=== PATIENT | male | born 1985 | race Caucasian/White ===

== ENCOUNTER 2016-11-24 22:44 | Emergency (ER) | payer OTHER ==
[~2016-11-24] VITALS: Ht 162.6 cm; Wt 81.6 kg
[2016-11-24 23:00] VITALS: BP 142/88
[2016-11-24] MEDS ORDERED: IV NORMAL SALINE 1,000ML 1,000 ML IV ONE (23:30)
[2016-11-24] MEDS ORDERED: fentaNYL PF 100 MCG/2 ML VIAL IV ONE (23:30)
[2016-11-24] MEDS ORDERED: ONDANSETRON PF 4 MG/2 ML VIAL. IV ONE (23:30)
[2016-11-24 23:46] LABS: BASO # 0.1 x10^3/uL (0.0-0.2); BASO % 1 % (0-3); EOS # 0.2 x10^3/uL (0.0-0.7); EOS % 2 % (0-3); HEMOGLOBIN 14.4 g/dL (13.0-17.5); LYMPH # 2.8 x10^3/uL (1.0-4.8); LYMPH % 24 % (24-48); MEAN CORPUSCULAR HEMOGLOBIN 33 pg (25-35); MEAN CORPUSCULAR HGB CONC 34 g/dL (31-37); MEAN CORPUSCULAR VOLUME 95 fL (79-100); MONO # 0.8 x10^3/uL (0.0-1.1); MONO % 7 % (0-9); NEUT # 7.6 x10^3uL (1.8-7.7); NEUT % 66 % (31-73); PLATELET COUNT 364 x10^3/uL (140-400); RED BLOOD COUNT 4.43 x10^6/uL (4.30-5.70); RED CELL DISTRIBUTION WIDTH 13.5 % (11.5-14.5); WHITE BLOOD COUNT 11.5 x10^3/uL (4.0-11.0)
[2016-11-24 23:51] LABS: BILIRUBIN,URINE NEG (NEG); CLARITY,URINE CLEAR; COLOR,URINE YELLOW; GLUCOSE,URINE NEG (NEG); NITRITE,URINE NEG (NEG); RBC,URINE >40 /HPF (0-2); UROBILINOGEN,URINE 0.2 mg/dL (0.2 mg/dL)
[2016-11-24 23:52] LABS: BACTERIA,URINE 0 /HPF (0-FEW); SQUAMOUS EPITHELIAL CELL,UR FEW /LPF; WBC,URINE OCC /HPF (0-4)
[2016-11-24 23:58] LABS: ALBUMIN/GLOBULIN RATIO 1.2 (1.0-1.7); CALCIUM 8.6 mg/dL (8.5-10.1); CREATININE 0.8 mg/dL (0.7-1.3); GFR 111.3; POTASSIUM 3.5 mmol/L (3.5-5.1); TOTAL BILIRUBIN 0.3 mg/dL (0.2-1.0); TOTAL PROTEIN 7.4 g/dL (6.4-8.2)
[2016-11-25] MEDS ORDERED: KETOROLAC 30 MG/ML VIAL. IV ONE
--- NOTE | 2016-11-25 00:29 | RAD ---
INDICATION: [id number] Left flank pain x2 hours. No injury. Hx of hysterectomy. COMPARISON: None. TECHNIQUE: Axial CT images were obtained through the abdomen and pelvis without intravenous contrast. Limited assessment of solid organ structures and vasculature secondary to lack of intravenous contrast. One or more of the following individualized dose reduction techniques were utilized for this examination: 1. Automated exposure control; 2. Adjustment of the mA and/or kV according to patient size; 3. Use of iterative reconstruction technique. FINDINGS: Chest Base: Partially imaged without gross abnormality. Vessels: No abdominal aortic aneurysm. Liver/Biliary: No intrahepatic bile duct dilation Pancreas: No peripancreatic edema. Spleen: Normal. Kidneys/Adrenal: Left-sided hydronephrosis with 7 mm proximal ureter stone Bladder: No definite adjacent inflammation. GI: No free air. No bowel dilation to suggest obstruction. Appendix does not appear inflamed. Suspected cystic lesion right adnexa, 3 cm. Small fat-containing umbilical hernia. IMPRESSION: 1. Left-sided hydronephrosis with proximal ureter stone. 2. Small cystic lesion right adnexa. 3. There is a sclerotic focus in the left femoral head. Could be from causes such as bone island but would correlate with symptoms in the region to ensure that there is not alternative cause such as bone infarct. Electronically signed by: Willis Maldonado MD (11/25/2016 12:26 AM) [facility]
[2016-11-25] MEDS ORDERED: fentaNYL PF 100 MCG/2 ML VIAL IV ONE (00:45)
--- NOTE | 2016-11-25 06:45 | ED.ADGEN ---
Past History Past Medical History: No Pertinent History Past Surgical History: Hysterectomy Alcohol Use: None Drug Use: None Adult General Chief Complaint Chief Complaint Acute onset left flank pain HPI HPI Patient is a 31-year-old female presents with acute onset left flank pain radiating to left groin. No hematuria, tissue area, urinary frequency urgency. No history of kidney stones. Reports nausea without vomiting. No fever chills or sweats. Previous hysterectomy.. [] Review of Systems Review of Systems Constitutional: Denies fever or chills [] Eyes: Denies change in visual acuity, redness, or eye pain [] HENT: Denies nasal congestion or sore throat [] Respiratory: Denies cough or shortness of breath [] Cardiovascular: No additional information not addressed in HPI [] GI: Denies abdominal pain, nausea, vomiting, bloody stools or diarrhea [] : Denies dysuria or hematuria [] Integument: Denies rash or skin lesions [] Neurologic: Denies headache, focal weakness or sensory changes [] Endocrine: Denies polyuria or polydipsia [] Current Medications Current Medications Current Medications Medications (Trade) Dose Ordered Sig/Dania Start Time Stop Time Status Last Admin Dose Admin Fentanyl Citrate (Fentanyl 2ml Vial) 75 mcg 1X ONCE 11/25/16 00:45 11/25/16 02:01 DC 11/25/16 00:45 75 MCG Ketorolac Tromethamine (Toradol) 30 mg 1X ONCE 11/25/16 00:00 11/25/16 02:01 DC 11/25/16 00:00 30 MG Ondansetron HCl (Zofran) 4 mg 1X ONCE 11/24/16 23:30 11/25/16 02:01 DC 11/24/16 23:30 4 MG Sodium Chloride 1,000 ml @ 1,000 mls/hr 1X ONCE 11/24/16 23:30 11/25/16 02:01 DC 11/24/16 23:30 1,000 MLS/HR Allergies Allergies Allergies Coded Allergies Type Severity Reaction Last Updated Verified cephalexin Allergy Unknown 11/25/16 Yes morphine Allergy Unknown 11/25/16 Yes Physical Exam Physical Exam Constitutional: Well developed, well nourished, moderate discomfort secondary to pain. [] HENT: Normocephalic, atraumatic, bilateral external ears normal, oropharynx moist, no oral exudates, nose normal. [] Eyes: PERRLA, EOMI, conjunctiva normal, no discharge. [] Neck: Normal range of motion, no tenderness, supple, no stridor. [] Cardiovascular:Heart rate regular rhythm, no murmur [] Lungs & Thorax: Bilateral breath sounds clear to auscultation [] Abdomen: Bowel sounds normal, soft, no tenderness, no masses, no pulsatile masses. [] Skin: Warm, dry, no erythema, no rash. [] Back: No tenderness, no CVA tenderness. [] Extremities: No tenderness, no cyanosis, no clubbing, ROM intact, no edema. [] Neurologic: Alert and oriented X 3, normal motor function, normal sensory function, no focal deficits noted. [] Psychologic: Affect normal, judgement normal, mood normal. [] Current Patient Data Vital Signs Vital Signs Date Time Temp Pulse Resp B/P (MAP) Pulse Ox O2 Delivery O2 Flow Rate FiO2 11/24/16 23:00 98.3 83 20 98 Room Air Lab Results Laboratory Tests Test 11/24/16 23:20 White Blood Count 11.5 x10^3/uL (4.0-11.0) H Red Blood Count 4.43 x10^6/uL (4.30-5.70) Hemoglobin 14.4 g/dL (13.0-17.5) Hematocrit 42.0 % (39.0-53.0) Mean Corpuscular Volume 95 fL (79-100) Mean Corpuscular Hemoglobin 33 pg (25-35) Mean Corpuscular Hemoglobin Concent 34 g/dL (31-37) Red Cell Distribution Width 13.5 % (11.5-14.5) Platelet Count 364 x10^3/uL (140-400) Neutrophils (%) (Auto) 66 % (31-73) Lymphocytes (%) (Auto) 24 % (24-48) Monocytes (%) (Auto) 7 % (0-9) Eosinophils (%) (Auto) 2 % (0-3) Basophils (%) (Auto) 1 % (0-3) Neutrophils # (Auto) 7.6 x10^3uL (1.8-7.7) Lymphocytes # (Auto) 2.8 x10^3/uL (1.0-4.8) Monocytes # (Auto) 0.8 x10^3/uL (0.0-1.1) Eosinophils # (Auto) 0.2 x10^3/uL (0.0-0.7) Basophils # (Auto) 0.1 x10^3/uL (0.0-0.2) Urine Collection Type Unknown Urine Color Yellow Urine Clarity Clear Urine pH 6.0 Urine Specific [place] 1.020 Urine Protein Neg (NEG-TRACE) Urine Glucose (UA) Neg mg/dL (NEG) Urine Ketones (Stick) Neg mg/dL (NEG) Urine Blood Large (NEG) Urine Nitrite Neg (NEG) Urine Bilirubin Neg (NEG) Urine Urobilinogen Dipstick 0.2 mg/dL (0.2 mg/dL) Urine Leukocyte Esterase Neg (NEG) Urine RBC >40 /HPF (0-2) Urine WBC Occ /HPF (0-4) Urine Squamous Epithelial Cells Few /LPF Urine Bacteria 0 /HPF (0-FEW) Sodium Level 138 mmol/L (136-145) Potassium Level 3.5 mmol/L (3.5-5.1) Chloride Level 101 mmol/L (98-107) Carbon Dioxide Level 33 mmol/L (21-32) H Anion Gap 4 (6-14) L Blood Urea Nitrogen 6 mg/dL (8-26) L Creatinine 0.8 mg/dL (0.7-1.3) Estimated GFR (Cockcroft-Gault) 111.3 BUN/Creatinine Ratio 8 (6-20) Glucose Level 108 mg/dL (70-99) H Calcium Level 8.6 mg/dL (8.5-10.1) Total Bilirubin 0.3 mg/dL (0.2-1.0) Aspartate Amino Transferase (AST) 15 U/L (15-37) Alanine Aminotransferase (ALT) 23 U/L (16-63) Alkaline Phosphatase 64 U/L (46-116) Total Protein 7.4 g/dL (6.4-8.2) Albumin 4.0 g/dL (3.4-5.0) Albumin/Globulin Ratio 1.2 (1.0-1.7) Lipase 201 U/L (73-393) EKG EKG [] Radiology/Procedures Radiology/Procedures [CT abdomen pelvis: Proximal 7 mm left ureteral stone with moderate hydroureter/ nephrosis.] Course & Med Decision Making Course & Med Decision Making Pertinent Labs and Imaging studies reviewed. (See chart for details) [Repeat IV narcotics, NSAIDs IV fluids given with significant improvement of symptoms. Recommendations are for close PCP follow-up or your for urology referral. Return precautions reviewed. Patient verbalized understanding agreement discharge instructions prior to departure.] Final Impression Final Impression [1 left flank pain 2. Ureteral stone] Problems: Dragon Disclaimer Dragon Disclaimer This electronic medical record was generated, in whole or in part, using a voice recognition dictation system. YAS ALMENDAREZ DO Nov 25, 2016 06:45
== END 2016-11-25 01:30 | disposition home or self-care (01) ==
LOC: ER 22:44
DX: N13.2 Hydronephrosis with renal and ureteral calculous obstruction (principal); Z88.1 Allergy status to other antibiotic agents; Z88.5 Allergy status to narcotic agent
CPT/HCPCS: 36415; 74176; 80053; 81001; 83690; 85025; 96361; 96374; 96375; 96376; 99285; J1885; J2405; J3010; J7030

== ENCOUNTER → 2017-01-16 | Outpatient (CLI) | payer OTHER ==
--- NOTE | 2017-01-16 11:55 | RAD ---
Indication: Right adnexal cystic lesion noted on prior CT. Comparison is made with prior CT from 11/24/2016. Transabdominal and transvaginal sonography was performed. The uterus is surgically absent. The right ovary measures 3.1 x 1.9 x 2.5 cm and the left ovary measures 2.9 x 1.9 x 2.7 cm. There are multiple follicles in bilateral ovaries. The largest cyst is on the right and measures approximately 1.8 x 1.6 cm. There is blood flow to the ovaries. No other adnexal mass or free fluid is seen. Impression: Status post hysterectomy. There is a small right ovarian cyst. The study is otherwise unremarkable.
== END | disposition home or self-care (01) ==
LOC: US 07:52
PROVIDERS: ATTEND Nurse Practitioner Family
DX: N83.201 Unspecified ovarian cyst, right side (principal); R19.09 Other intra-abdominal and pelvic swelling, mass and lump; N85.8 Other specified noninflammatory disorders of uterus; Z90.710 Acquired absence of both cervix and uterus
CPT/HCPCS: 76830; 76856